=== PATIENT | female | born 1935 | race Caucasian/White ===

== ENCOUNTER 2018-03-15 10:19 | Emergency (ER) | payer MEDICARE ==
[~2018-03-15] VITALS: Ht 157.5 cm; Wt 68.2 kg
[~2018-03-15 10:19] MED LIST: ALBU18HF INH; ALPR1TAB6 PO; BUDE10.2 IH; CARI250T PO; CIPR250T27 PO; IBUP-1623 PO; METH5TAB2 PO; METO200T47 PO
[2018-03-15 10:21] VITALS: BP 177/53
== END 2018-03-15 11:45 | disposition home or self-care (01) ==
LOC: ED 11:05
DX: L98.9 Disorder of the skin and subcutaneous tissue, unspecified (principal); F41.1 Generalized anxiety disorder; Z95.0 Presence of cardiac pacemaker
CPT/HCPCS: 99283

== ENCOUNTER 2020-06-02 13:12 | Emergency (ER) | payer MEDICARE, OTHER ==
[~2020-06-02] VITALS: Ht 157.5 cm; Wt 62.3 kg
[~2020-06-02 13:12] MED LIST changes: +ALPR-585 PO; -ALPR1TAB6 PO
--- NOTE | 2020-06-02 13:30 | NUR ---
ROSETTE, CAREGIVER PHONE NUMBER [phone].
--- NOTE | 2020-06-02 13:48 | NUR ---
PT TO RAD.
[2020-06-02] MEDS ORDERED: HYDROmorphone 1 MG/ML, 1ML INJ IM PRN (14:00)
[2020-06-02] MEDS ORDERED: HYDROmorphone 1 MG/ML, 1ML INJ ONE (14:19)
--- NOTE | 2020-06-02 14:26 | NUR ---
PT MEDICATED PER EMAR.
--- NOTE | 2020-06-02 14:26 | NUR ---
PT PLACED ON 2L NC FOR SAFETY.
[2020-06-02 15:03] VITALS: BP 112/84
== END 2020-06-02 15:24 | disposition home or self-care (01) ==
LOC: ED 14:55
DX: M17.0 Bilateral primary osteoarthritis of knee (principal)
CPT/HCPCS: 73564; 96372; 99283; J1170

== ENCOUNTER 2020-06-24 10:28 | Emergency (ER) | payer MEDICARE, OTHER ==
[~2020-06-24] VITALS: Ht 157.5 cm; Wt 63.0 kg
--- NOTE | 2020-06-24 10:43 | NUR ---
THE PT IS AN 84F BIB EMS FROM AN INDEPENDENT LIVING FACILITY WITH COMPLAINTS OF CHEST TIGHTNESS THAT STARTED THIS MORNING AT 0700. SHE DENIES ANY RADIATION. SHE ALSO COMPLAINS OF A SORE THROAT AND PAIN ON HER SCALP WHICH SHE SAYS IS FROM A FALL LAST YEAR. PROVIDER AT BEDSIDE FOR EVAL. SHE WAS GIVEN [address]. EMS PLACED A 20G IV IN HER LEFT ARM. SHE IS ON THE CARDIAC, SP02, AND BP MONITORS. CALL LIGHT WITHIN REACH.
[2020-06-24] MEDS ORDERED: ACETAMINOPHEN 325 MG TABLET ONE (10:56)
[2020-06-24 10:59] LABS: BASOPHILS % (AUTO) 1 % (0-1); EOSINOPHILS % (AUTO) 2 % (1-7); LYMPHOCYTES % (AUTO) 21 % (22-44); MEAN CORPUSCULAR HEMOGLOBIN 31.5 pg (27.0-34.8); MEAN CORPUSCULAR HGB CONC 33.2 g/dL (32.4-35.8); MEAN PLATELET VOLUME 7.5 fL (7.4-10.4); MONOCYTES % (AUTO) 11 % (2-9); NEUTROPHILS % (AUTO) 65 % (42-75); PLATELET COUNT 324 x10^3/uL (130-400); RED BLOOD COUNT 4.49 x10^6/uL (3.82-5.3); RED CELL DISTRIBUTION WIDTH 13.7 % (9.6-15.2)
[2020-06-24] MEDS ORDERED: ACETAMINOPHEN 325 MG TABLET PO ONE (11:00)
[2020-06-24 11:09] LABS: ALANINE AMINOTRANSFERASE 10 U/L (12-78); ANION GAP 4 mmol/L (5-15); CALCIUM 8.9 mg/dL (8.5-10.1); CHLORIDE 105 mmol/L (98-107); CREATININE 0.66 mg/dL (0.55-1.02); MD NO
--- NOTE | 2020-06-24 11:11 | NUR ---
I REVIEWED THE MEDS ON FILE AND THE PT STATES SHE NO LONGER TAKES THEM BUT DOES NOT HAVE HER CURRENT MEDS.
[2020-06-24 11:13] LABS: ALKALINE PHOSPHATASE 94 U/L (45-117); BILIRUBIN,TOTAL 0.6 mg/dL (0.2-1.0); TOTAL PROTEIN 7.1 g/dL (6.4-8.2); TROPONIN I < 0.015 ng/mL (0.000-0.045)
--- NOTE | 2020-06-24 12:33 | NUR ---
BREAK RN: PT REPORTS FEELING BETTER, CURRENTLY RESTING IN NAD. VSS.
[2020-06-24 13:23] LABS: RAPID INFLUENZA A Negative (Negative); RAPID INFLUENZA B Negative (Negative)
[2020-06-24 13:58] VITALS: BP 143/57
--- NOTE | 2020-06-24 14:00 | NUR ---
pt d/c in wheelchair to lobby where son picked her up. d/c paperwork given and patient verbalized understanding.
== END 2020-06-24 14:01 | disposition home or self-care (01) ==
LOC: ED 11:17
DX: R07.89 Other chest pain (principal); B34.9 Viral infection, unspecified; Z20.822 Contact with and (suspected) exposure to COVID-19; Z95.0 Presence of cardiac pacemaker
CPT/HCPCS: 36415; 71045; 80053; 84484; 85025; 87400; 93005; 99285; U0003

== ENCOUNTER 2020-08-14 10:06 | Emergency (ER) | payer MEDICARE, OTHER, MEDICAID ==
[~2020-08-14] VITALS: Ht 157.5 cm; Wt 62.0 kg
[2020-08-14 10:59] LABS: BASOPHILS % (AUTO) 2 % (0-1); EOSINOPHILS % (AUTO) 6 % (1-7); LYMPHOCYTES % (AUTO) 38 % (22-44); MD NO; MEAN CORPUSCULAR HEMOGLOBIN 31.4 pg (27.0-34.8); MEAN CORPUSCULAR HGB CONC 33.1 g/dL (32.4-35.8); MEAN PLATELET VOLUME 7.7 fL (7.4-10.4); MONOCYTES % (AUTO) 9 % (2-9); NEUTROPHILS % (AUTO) 46 % (42-75); PLATELET COUNT 291 x10^3/uL (130-400); RED BLOOD COUNT 4.45 x10^6/uL (3.82-5.3); RED CELL DISTRIBUTION WIDTH 13.7 % (9.6-15.2)
[2020-08-14 11:05] LABS: ALBUMIN 3.2 g/dL (3.4-5.0); ANION GAP 6 mmol/L (5-15); CHLORIDE 107 mmol/L (98-107); CREATININE 0.77 mg/dL (0.55-1.02)
--- NOTE | 2020-08-14 11:22 | NUR ---
PT SKIN EXORIATED LABIA AND AROUND URETHRA. UNABLE TO TOLERATE STRAIGHT CATH. MD AT BEDSIDE EXAMINING PT. 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 URINE NOT TO BE OBTAINED PER MD.
--- NOTE | 2020-08-14 12:40 | NUR ---
DISCUSSED WITH PT THAT SHE NEEDS TO CALL PHARMACY TECHNICIAN INFUSION WHEN SHE GETS [place], THAT SHE IS UNABLE TO PRESCRIBE A PESSERY BECAUSE IT HAS TO BE FITTED.
[2020-08-14 12:59] VITALS: BP 119/74
--- NOTE | 2020-08-14 12:59 | NUR ---
PT ASSISTED TO W/C AND TO LOBBY. FRIEND GLENN BRIEFLY IN LOBBY TO TELL HER THAT HER SON WILL BE PICKING HER UP.
== END 2020-08-14 13:02 | disposition home or self-care (01) ==
LOC: ED 11:44
DX: R10.2 Pelvic and perineal pain (principal); N81.10 Cystocele, unspecified
CPT/HCPCS: 36415; 80048; 82040; 85025; 99283

== ENCOUNTER 2020-08-31 12:00 | Day surgery (SDC) | payer MEDICARE, OTHER, MEDICAID ==
[~2020-08-31] VITALS: Ht 157.5 cm; Wt 60.9 kg
[~2020-08-31 12:00] MED LIST changes: +CEFAZOLIN 1,000 MG ONE; +KETOROLAC 30 MG/1 ML ONE; +ONDANSETRON 2MG/ML, 2ML ONE; +PROPOFOL 10 MG/ML, 20ML ONE
[2020-08-31] MEDS ORDERED: GENTAMICIN 80 MG/2 ML ONE (12:36)
[2020-08-31] MEDS ORDERED: VANCOMYCIN 500 MG ONE (12:36)
[2020-08-31] MEDS ORDERED: CHLORHEXIDINE 15 ML UDC PO ONE (13:00)
[2020-08-31] MEDS ORDERED: LACTATED RINGERS 1,000 ML IV SCH (13:00)
[2020-08-31] MEDS ORDERED: PLEASE ENTER HEIGHT AND WEIGHT MC SCH (13:00)
[2020-08-31] MEDS ORDERED: SENN-190 PO (13:04)
[2020-08-31] MEDS ORDERED: DULO30CA2 PO (13:04)
[2020-08-31] MEDS ORDERED: [UNRECOGNIZED DRUG - OTHER] PO (13:04)
[2020-08-31] MEDS ORDERED: [UNRECOGNIZED DRUG - OTHER] PO (13:04)
[2020-08-31] MEDS ORDERED: SULF1TAB23 PO (13:04)
[2020-08-31] MEDS ORDERED: ASPI81TA45 PO (13:04)
[2020-08-31] MEDS ORDERED: MIRA50TA PO (13:04)
[2020-08-31] MEDS ORDERED: CALCIUM PO (13:04)
[2020-08-31 13:15] VITALS: BP 194/79
[2020-08-31] MEDS ORDERED: HYDR-3237 PO (13:15)
[2020-08-31 13:33] VITALS: BP 175/75
[2020-08-31] MEDS ORDERED: HYDROcodone/APAP 5/325 TABLET ONE (14:43)
[2020-08-31] MEDS ORDERED: HYDROcodone/APAP 5/325 TABLET PO ONE (15:00)
[2020-08-31] MEDS ORDERED: HYDROmorphone 1 MG/ML, 1ML INJ IVPush PRN (15:30)
[2020-08-31] MEDS ORDERED: ONDANSETRON 2MG/ML, 2ML IVPush PRN (15:30)
[2020-08-31] MEDS ORDERED: MEPERIDINE/PF 25MG/0.5ML IVPush PRN (15:30)
[2020-08-31] MEDS ORDERED: ACETAMINOPHEN 325 MG TABLET PO PRN (15:30)
[2020-08-31] MEDS ORDERED: FENTANYL PF 100 MCG/2ML IV PRN (15:30)
[2020-08-31] MEDS ORDERED: PROMETHAZINE 25 MG/ML, 1ML IVPush PRN (15:30)
[2020-08-31] MEDS ORDERED: OXYcodone 5 MG/5 ML ORAL.SOL UDC PO PRN (15:30)
[2020-08-31] MEDS ORDERED: BUPIVACAINE/PF-EPI 0.25% 1:200K INFIL ONE (15:37)
[2020-08-31] MEDS ORDERED: OXYcodone 5 MG/5 ML ORAL.SOL UDC ONE (15:49)
[2020-08-31] MEDS ORDERED: FENTANYL PF 100 MCG/2ML ONE (15:49)
== END 2020-08-31 18:35 | disposition home or self-care (01) ==
LOC: OUT 12:00
PROVIDERS: ATTEND Obstetrics & Gynecology Female Pelvic Medicine and Reconstructive Surgery
DX: N81.89 Other female genital prolapse (principal); N39.46 Mixed incontinence; N81.11 Cystocele, midline; N81.5 Vaginal enterocele; N81.6 Rectocele; M17.0 Bilateral primary osteoarthritis of knee; Z20.822 Contact with and (suspected) exposure to COVID-19; Z79.82 Long term (current) use of aspirin; Z79.899 Other long term (current) drug therapy; Z90.710 Acquired absence of both cervix and uterus; Z90.49 Acquired absence of other specified parts of digestive tract; Z95.0 Presence of cardiac pacemaker; Z98.890 Other specified postprocedural states
CPT/HCPCS: 57265; 57282; 57288; 87635; 93005; C1771; J0690; J1580; J1885; J2405; J2704; J3010; J3370; J7120